=== PATIENT | female | born 1945 | race Caucasian/White ===

== ENCOUNTER → 2018-06-26 | Outpatient (CLI) | payer OTHER ==
[2018-06-26 16:16] LABS: URINE BILIRUBIN NEGATIVE (Negative); URINE BLOOD NEGATIVE (Negative); URINE CLARITY CLEAR; URINE COLOR YELLOW; URINE GLUCOSE-RANDOM* NEGATIVE (Negative); URINE KETONES NEGATIVE (Negative); URINE LEUKOCYTES-REFLEX TRACE (Negative); URINE NITRITE-REFLEX NEGATIVE (Negative); URINE PROTEIN (DIPSTICK) NEGATIVE (Negative); URINE UROBILINOGEN 0.2 E.U./dl (0.2-1.0)
[2018-06-26 16:16] LABS: BASOPHILS 0.7 % (0.0-2.0); EOSINOPHILS 1.7 % (0.0-3.0); HEMATOCRIT 31.2 % (37.0-47.0); HEMOGLOBIN 10.2 gm/dL (12.0-15.0); LYMPHOCYTES 30.6 % (24.0-44.0); MCH 28.2 pg (26.0-34.0); MCHC 32.9 g/dL (28.0-37.0); MCV 85.7 fL (80.0-100.0); MONOCYTES 11.2 % (1.0-8.0); PLATELET COUNT 154 thou/uL (150-400); POLYS 55.8 % (36.0-66.0); RBC 3.64 mil/uL (4.20-5.00); RDW 15.8 % (10.5-14.5); WBC 3.6 thou/uL (4.0-11.0)
[2018-06-26 16:30] LABS: ALBUMIN 2.9 g/dL (3.4-5.0); ANION GAP 6 mmol/L (7-16); BUN 31 mg/dL (7-18); CALCIUM 9.3 mg/dL (8.5-10.1); CHLORIDE 105 mmol/L (98-107); CHOLESTEROL 152 mg/dL (<200); CO2 29 mmol/L (21-32); CREATININE 1.4 mg/dL (0.6-1.0); GLUCOSE 102 mg/dL (74-106); HDL CHOLESTEROL 32 mg/dL (>40); LDL CHOLESTEROL 91 mg/dL (<100); SGOT 20 U/L (15-37); SGPT 25 U/L (30-65); SODIUM 140 mmol/L (136-145); TC:HDL 4.8 Ratio (Not establshd); TOTAL BILIRUBIN 0.4 mg/dL (<0.1-1.0); TOTAL PROTEIN 7.8 g/dL (6.4-8.2); TRIGLYCERIDE 146 mg/dL (<150); URIC ACID* 5.6 mg/dL (2.6-7.2); VLDL 29 mg/dL (<40)
[2018-06-26 23:09] LABS: GLYCOHEMOGLOBIN (HGB A1C) 5.7 % (4.8-5.6)
== END ==
LOC: SEN 11:36
PROVIDERS: Nurse Practitioner Family
DX: L02.91 Cutaneous abscess, unspecified (principal); R30.0 Dysuria

== ENCOUNTER → 2018-07-10 | Outpatient (CLI) | payer OTHER | LOC: RAD 14:01 → SEN 14:01 | DX: M54.2 Cervicalgia (principal) ==

== ENCOUNTER → 2018-08-07 | Outpatient (CLI) | payer OTHER | LOC: SEN 11:28 | DX: M54.2 Cervicalgia (principal); J06.0 Acute laryngopharyngitis; I10 Essential (primary) hypertension; R92.8 Other abnormal and inconclusive findings on diagnostic imaging of breast ==

== ENCOUNTER → 2018-09-04 | Outpatient (CLI) | payer OTHER | LOC: SEN 10:25 | DX: M16.12 Unilateral primary osteoarthritis, left hip (principal); I10 Essential (primary) hypertension; M62.838 Other muscle spasm; Z88.5 Allergy status to narcotic agent; Z88.0 Allergy status to penicillin ==

== ENCOUNTER → 2019-12-15 | Outpatient (CLI) | payer OTHER | LOC: LAB 09:31 | PROVIDERS: ATTEND Internal Medicine | DX: Z01.812 Encounter for preprocedural laboratory examination (principal); Z11.59 Encounter for screening for other viral diseases ==

== ENCOUNTER → 2019-12-18 | Outpatient (CLI) | payer OTHER ==
--- NOTE | 2019-12-24 12:04 | SLE ---
[facility] [place] [address] POLYSOMNOGRAPHY STUDY Name: MARISOL MATOS Room #: [facility] Ozzy#: [id number] Admission: 12/18/19 Attend Phys: Jacque Patterson DO Discharge: Date of : 45 Report #: [id number] THIS REPORT FOR: //name// CC: Dr. Jacque Álvarezm Akkulugari DATE OF SERVICE: 12/18/2019 SLEEP STUDY ATTENDING PHYSICIAN: Dr. Jacque Patterson. The patient is a 74 years old who weighs 250 pounds with a BMI of 44. The patient's Butler score was 8. The patient underwent diagnostic sleep study performed at [facility]. During the night study, the patient spent 467 minutes in bed, but slept for only 59 minutes. This was accomplished during the later part of the night when the patient slept in a recliner. The patient's sleep architecture showed increased stage 1 and stage 2 sleep, absent slow wave and absent REM sleep. The patient's sleep latency was 57 minutes with an absent REM sleep. During the limited sleep. the patient had no obstructive central or mixed apneas and no hypopneas. The patient's AHI was 0 per hour. EKG monitoring revealed an average heart rate of 53 beats per minute. No arrhythmias observed. Some EEG artifacts on EKG were seen. No PLMS observed. Nocturnal oximetry study revealed an average oxygen saturation of 92% with the lowest of 90%. Due to limited sleep, it is difficult to assess for any severity of sleep apnea. IMPRESSION: 1. Very poor sleep efficiency of only 12.7%. 2. No clinically significant sleep apnea observed, but due to very limited sleep, it is difficult to rule out any sleep disorder breathing. 3. No clinically significant nocturnal hypoxia. No PLMS observed. RECOMMENDATIONS: 1. The patient did not sleep well in the lab. As a result, it is difficult to assess for any severity of sleep apnea. If patient's insomnia is chronic, then it should be further evaluated and treated and once improved, the patient can have a repeat diagnostic sleep study. 2. Alternate option would be to do a home sleep study. [facility] [address] [place] [address] POLYSOMNOGRAPHY STUDY Name: MARISOL MATOS Room #: [facility].#: [id number] Admission: 12/18/19 Attend Phys: Jacque Patterson DO Discharge: Date of : 45 Report #: [id number] 3. Weight loss is strongly advised. 4. Avoid COPY HOLDER depressants. 5. Cautioned regarding driving until the patient's hypersomnia is resolved. <ELECTRONICALLY SIGNED> By: Vikram Somers MD 12/24/19 1204 [id number] 1835 Vikram Somers MD /nt
== END ==
LOC: SLEEPLAB 18:58
PROVIDERS: ATTEND Internal Medicine
DX: G47.33 Obstructive sleep apnea (adult) (pediatric) (principal)